=== PATIENT | female | born 1990 | race Hispanic/Latino ===

== ENCOUNTER 2021-03-12 15:24 | Emergency (ER) | payer OTHER ==
[~2021-03-12] VITALS: Ht 165.1 cm; Wt 102.1 kg
[2021-03-12 16:02] VITALS: BP 103/62
[2021-03-12] MEDS ORDERED: ACET-2247 PO (16:34)
[2021-03-12] MEDS: ACETAMINOPHEN 500 MG TABLET PO ONE (16:45)
== END 2021-03-12 16:43 | disposition home or self-care (01) ==
LOC: EDH 15:24
DX: O99.513 Diseases of the respiratory system complicating pregnancy, third trimester (principal); J10.1 Influenza due to other identified influenza virus with other respiratory manifestations; Z20.822 Contact with and (suspected) exposure to COVID-19; Z3A.32 32 weeks gestation of pregnancy
CPT/HCPCS: 87635; 87804 ×2; 87880; 99283; C9803

== ENCOUNTER 2021-10-03 10:14 | Emergency (ER) | payer OTHER ==
[~2021-10-03] VITALS: Ht 165.1 cm; Wt 97.5 kg
[~2021-10-03 10:14] MED LIST: ACET-2247 PO
[2021-10-03] MEDS ORDERED: AMOX1TAB16 PO (11:30)
[2021-10-03] MEDS ORDERED: D-ME1POW16 PO (11:30)
[2021-10-03] MEDS ORDERED: AZITHROMYCIN 250 MG TABLET PO SCH (11:30)
[2021-10-03] MEDS ORDERED: GUAIFENESIN-CODEINE 5 ML SYRUP PO ONE (11:30)
[2021-10-03] MEDS ORDERED: AMOX/CLAV 875/125MG TAB PO SCH (11:30)
[2021-10-03 11:51] VITALS: BP 113/64
== END 2021-10-03 11:53 | disposition home or self-care (01) ==
LOC: EDH 10:14
DX: J06.9 Acute upper respiratory infection, unspecified (principal); Z20.822 Contact with and (suspected) exposure to COVID-19
CPT/HCPCS: 71045; 81025; 87635; 87804; 87880; C9803